=== PATIENT | female | born 1945 | race Caucasian/White ===

== ENCOUNTER 2025-05-20 14:12 | Inpatient (IN) | payer MEDICARE ==
[~2025-05-20] VITALS: Ht 170.2 cm; Wt 59.9 kg
[2025-05-20 15:59] LABS: PLATELET COUNT (AUTO) 221 K/uL (150-450); RED BLOOD CELL COUNT(AUTO) 5.27 MIL/uL (4.0-5.2); WHITE BLOOD COUNT (AUTO) 10.2 K/uL (4.3-11.0)
[2025-05-20 16:02] LABS: CALCIUM, SERUM 10.3 mg/dL (8.5-10.1); CREATININE 0.9 mg/dL (0.6-1.3); SODIUM SERUM 135 mmol/L (136-145); UREA NITROGEN, BLOOD 18 mg/dL (7-18)
[2025-05-20 16:08] LABS: ASPARTATE AMINOTRANSFERASE 24 U/L (15-37); TOTAL PROTEIN, SERUM 9.2 g/dL (6.4-8.2)
[2025-05-20] MEDS ORDERED: MORPHINE SULFATE INJ 4 MG/ML DISP.SYRIN ONE (16:10)
[2025-05-20] MEDS ORDERED: PANTOPRAZOLE 40 MG VIAL ONE (16:10)
[2025-05-20] MEDS ORDERED: ONDANSETRON HCL/PF 4 MG/2 ML VIAL ONE (16:10)
[2025-05-20] MEDS: ONDANSETRON HCL/PF 4 MG/2 ML VIAL IVP ONE (16:19)
[2025-05-20] MEDS: MORPHINE SULFATE INJ 2 MG/ML DISP.SYRIN IV ONE (16:19)
[2025-05-20] MEDS: PANTOPRAZOLE 40 MG VIAL IV ONE (16:20)
[2025-05-20] MEDS: IV NS 0.9% 1,000 ML BAG IV ONE (16:20)
[2025-05-20] MEDS ORDERED: IOHEXOL-300 100 ML VIAL IV ONE (16:21)
[2025-05-20] MEDS ORDERED: IV NS 0.9% 250 ML IV ONE (16:22)
[2025-05-20] MEDS ORDERED: DIATR MEGLU/DIATRIZOATE SODIUM 30 ML BOTTLE (GASTROGRAPHIN) ONE (18:09)
[2025-05-20] MEDS ORDERED: INSU100I30 SQ (18:18)
[2025-05-20] MEDS ORDERED: GEMTESA PO (18:18)
[2025-05-20] MEDS ORDERED: EXEM25TA5 PO (18:18)
[2025-05-20] MEDS ORDERED: ATOR40TA PO (18:18)
[2025-05-20] MEDS ORDERED: LEQEMBI IV (18:18)
[2025-05-20] MEDS ORDERED: LINA145C PO (18:18)
[2025-05-20] MEDS ORDERED: LIPA1CAP15 PO (18:18)
[2025-05-20] MEDS ORDERED: PANT40TA49 PO (18:18)
[2025-05-20] MEDS ORDERED: SITA100T PO (18:18)
[2025-05-20] MEDS ORDERED: IRBE75TA11 PO (18:18)
[2025-05-20] MEDS ORDERED: MOBIC PO (18:18)
[2025-05-20] MEDS ORDERED: HYDROMORPHONE 1 MG/1 ML DISP.SYRIN ONE (18:30)
[2025-05-20] MEDS: HYDROMORPHONE INJ 2 MG/ML DISP.SYRIN IV ONE (18:32)
[2025-05-20] MEDS ORDERED: hydrALAZINE HCL IV 20 MG VIAL IV PRN (19:00)
[2025-05-20] MEDS ORDERED: ACETAMINOPHEN 325 MG TABLET PO PRN (19:00)
[2025-05-20] MEDS ORDERED: DEXTROSE 50%-WATER 50 ML DISP.SYRIN IV PRN (19:00)
[2025-05-20 20:00] VITALS: BP 124/68; TEMP 98.1; O2SAT 95
[2025-05-20] MEDS ORDERED: DIATR MEGLU/DIATRIZOATE SODIUM 120 ML BOTTLE (GASTROGRAPHIN) ONE (20:01)
[2025-05-20 20:10] VITALS: BP 124/68; TEMP 98.1; O2SAT 95
[2025-05-20] MEDS: HEPARIN SODIUM, PORCINE 5000 UNITS/1 ML VIAL SQ SCH (20:46)
[2025-05-20] MEDS: IV NS 0.9% 1,000 ML IV SCH (20:46)
[2025-05-20] MEDS: BLOOD SUGAR DIAGNOSTIC 1 EACH STRIP VI SCH (20:59)
[2025-05-20] MEDS: *INSULIN REGULAR(HUMULIN R)HUM 100 UNIT/ML VIAL SQ PRN (21:03)
[2025-05-20 21:30] VITALS: BP 149/82; TEMP 99.5; O2SAT 98
[2025-05-21] MEDS: MORPHINE SULFATE INJ 2 MG/ML DISP.SYRIN IV PRN (00:58)
[2025-05-21] MEDS: ONDANSETRON HCL/PF 4 MG/2 ML VIAL IVP PRN (03:39)
[2025-05-21] MEDS: INSULIN REGULAR, HUMAN 100 UNIT/ML 3 ML VIAL SQ PRN (06:40)
[2025-05-21 06:59] LABS: PLATELET COUNT (AUTO) 210 K/uL (150-450); RED BLOOD CELL COUNT(AUTO) 4.86 MIL/uL (4.0-5.2); RED CELL DISTRIBUTION WIDTH 13.0 % (11.5-15.0); WHITE BLOOD COUNT (AUTO) 10.3 K/uL (4.3-11.0)
[2025-05-21 07:00] VITALS: BP 165/80; TEMP 98.2; O2SAT 95
[2025-05-21 07:36] LABS: ASPARTATE AMINOTRANSFERASE 26.0 U/L (15-37); CALCIUM, SERUM 9.2 mg/dL (8.5-10.1); CREATININE 1.0 mg/dL (0.6-1.3); PHOSPHORUS 5.9 mg/dL (2.5-4.9); SODIUM SERUM 140.0 mmol/L (136-145); TOTAL PROTEIN, SERUM 8.1 g/dL (6.4-8.2); UREA NITROGEN, BLOOD 27.0 mg/dL (7-18)
[2025-05-21] MEDS: HYDROMORPHONE 1 MG/1 ML DISP.SYRIN IV PRN (11:09)
[2025-05-21 20:00] VITALS: BP 103/70; TEMP 97.4; O2SAT 93
[2025-05-21 23:19] VITALS: BP 103/70; TEMP 97.7; O2SAT 93
[2025-05-22 07:30] VITALS: BP 150/64; TEMP 98.1; O2SAT 94
[2025-05-22] MEDS ORDERED: LIDOCAINE 0.5%-EPI 1:200,000 50 ML VIAL ONE (14:06)
[2025-05-22] MEDS ORDERED: LIDOCAINE 1%-EPI 1:100,000 20 ML VIAL ONE (14:06)
[2025-05-22] MEDS ORDERED: BUPIVACAINE 0.5 % PF 150 MG/30 ML VIAL ONE (14:06)
[2025-05-22] MEDS ORDERED: ANESTHESIA TRAY IN PYXIS 1 EA TRAY MC ONE (14:06)
[2025-05-22] MEDS ORDERED: FENTANYL PF 250MCG/5ML AMPUL ONE (15:11)
[2025-05-22] MEDS ORDERED: ROCURONIUM BROMIDE 50 MG/5 ML ONE (15:11)
[2025-05-22] MEDS ORDERED: METRONIDAZOLE 500MG/ NS 100ML 100 ML IV ONE (15:54)
[2025-05-22 16:04] LABS: INR 1.02 (0.91-1.10)
[2025-05-22] MEDS ORDERED: LABETALOL 20 MG/4 ML VIAL ONE (16:11)
[2025-05-22] MEDS ORDERED: ONDANSETRON HCL/PF 4 MG/2 ML VIAL ONE (17:17)
[2025-05-22 20:00] VITALS: BP 133/57; TEMP 97.9; O2SAT 93
[2025-05-23 08:00] VITALS: BP 144/68; TEMP 98; O2SAT 96
[2025-05-23 09:57] LABS: PLATELET COUNT (AUTO) 161 K/uL (150-450); RED BLOOD CELL COUNT(AUTO) 4.01 MIL/uL (4.0-5.2); RED CELL DISTRIBUTION WIDTH 13.2 % (11.5-15.0); WHITE BLOOD COUNT (AUTO) 6.2 K/uL (4.3-11.0)
[2025-05-23 10:11] LABS: CALCIUM, SERUM 8.5 mg/dL (8.5-10.1); CREATININE 0.7 mg/dL (0.6-1.3); PHOSPHORUS 2.3 mg/dL (2.5-4.9); SODIUM SERUM 146.0 mmol/L (136-145); UREA NITROGEN, BLOOD 22.0 mg/dL (7-18)
[2025-05-23 16:00] VITALS: BP 150/64; TEMP 99.1; O2SAT 96
[2025-05-23] MEDS: Sodium Phosphate 15 MMOL in IV NS 0.9% 245 ML IV SCH (16:53)
[2025-05-23 20:00] VITALS: BP 147/72; TEMP 98.2; O2SAT 96
[2025-05-24 07:43] LABS: CALCIUM, SERUM 8.3 mg/dL (8.5-10.1); CREATININE 0.5 mg/dL (0.6-1.3); PHOSPHORUS 2.0 mg/dL (2.5-4.9); SODIUM SERUM 146.0 mmol/L (136-145); UREA NITROGEN, BLOOD 16.0 mg/dL (7-18)
[2025-05-24 08:00] VITALS: BP 146/67; TEMP 98; TEMP 98.3; O2SAT 95
[2025-05-24] MEDS: IV NS 0.9% 1,000 ML IV PRN (10:29)
[2025-05-24] MEDS: POLYVINYL ALCOHOL 15 ML BOTTLE EACHEYE PRN (12:29)
[2025-05-24 16:00] VITALS: BP 137/62; TEMP 98.1; O2SAT 99
[2025-05-24] MEDS: Sodium Phosphate 15 MMOL in IV NS 0.9% 245 ML IV SCH (16:02)
[2025-05-24] MEDS: IV D5/ 0.9% NACL 1,000 ML IV SCH (16:02)
[2025-05-24 20:00] VITALS: BP 127/70; TEMP 98.1; O2SAT 97
[2025-05-24] MEDS: GUAIFENESIN 300 MG/15 ML UDC PO PRN (22:25)
[2025-05-25 07:54] LABS: CALCIUM, SERUM 8.4 mg/dL (8.5-10.1); CREATININE 0.6 mg/dL (0.6-1.3); SODIUM SERUM 145.0 mmol/L (136-145); UREA NITROGEN, BLOOD 13.0 mg/dL (7-18)
[2025-05-25 08:00] VITALS: BP 122/60; TEMP 98.4; O2SAT 98
[2025-05-25 08:15] VITALS: BP 122/60; TEMP 98.4; O2SAT 98
[2025-05-25] MEDS ORDERED: POTASSIUM CHLORIDE 20 MEQ POWDER PACKET PO SCH (09:30)
[2025-05-25] MEDS ORDERED: POTASSIUM CL. PREMIX PERIPHER. 50 ML IV SCH (09:30)
[2025-05-25] MEDS: POTASSIUM CHLORIDE 20 MEQ POWDER PACKET PO SCH (10:09)
[2025-05-25] MEDS: IV D5/ 0.9% NACL 1,000 ML IV PRN (11:08)
[2025-05-25 16:00] VITALS: BP 151/77; TEMP 98.2; O2SAT 100
[2025-05-25 16:41] VITALS: BP 151/77; TEMP 98.2; O2SAT 100
[2025-05-25 20:00] VITALS: BP 150/61; TEMP 97.3; O2SAT 99
[2025-05-25 21:13] VITALS: BP 150/61; TEMP 97.3; O2SAT 99
[2025-05-26 06:51] LABS: CALCIUM, SERUM 7.9 mg/dL (8.5-10.1); CREATININE 0.4 mg/dL (0.6-1.3); PHOSPHORUS 2.6 mg/dL (2.5-4.9); SODIUM SERUM 140.0 mmol/L (136-145); UREA NITROGEN, BLOOD 7.0 mg/dL (7-18)
[2025-05-26 06:59] LABS: PLATELET COUNT (AUTO) 156 K/uL (150-450); RED BLOOD CELL COUNT(AUTO) 3.80 MIL/uL (4.0-5.2); RED CELL DISTRIBUTION WIDTH 12.5 % (11.5-15.0); WHITE BLOOD COUNT (AUTO) 4.7 K/uL (4.3-11.0)
[2025-05-26 08:00] VITALS: BP 152/63; TEMP 97.9; O2SAT 97
[2025-05-26] MEDS: MAGNESIUM OXIDE 400 MG TABLET PO ONE (09:01)
[2025-05-26] MEDS: POTASSIUM CL. PREMIX PERIPHER. 50 ML IV SCH (09:42)
== END 2025-05-26 11:00 | disposition home health service (06) | DRG 337 ==
LOC: ER 14:16 → TELE 19:28 → MED 20:17
PROVIDERS: ADMIT Internal Medicine
PROC: 0DNN4ZZ Release Sigmoid Colon, Percutaneous Endoscopic Approach (ICD-10-PCS; 2025-05-22)
PROC: 0DNU4ZZ Release Omentum, Percutaneous Endoscopic Approach (ICD-10-PCS; 2025-05-22)
PROC: 0DNK4ZZ Release Ascending Colon, Percutaneous Endoscopic Approach (ICD-10-PCS; 2025-05-22)
PROC: 0DNB4ZZ Release Ileum, Percutaneous Endoscopic Approach (ICD-10-PCS; principal; 2025-05-22 15:00)
DX: K56.52 Intestinal adhesions [bands] with complete obstruction (principal); K56.2 Volvulus; D75.1 Secondary polycythemia; E86.0 Dehydration; K59.00 Constipation, unspecified; Z85.3 Personal history of malignant neoplasm of breast; E11.9 Type 2 diabetes mellitus without complications; I10 Essential (primary) hypertension; N28.1 Cyst of kidney, acquired; Z90.49 Acquired absence of other specified parts of digestive tract; Z90.710 Acquired absence of both cervix and uterus; K63.89 Other specified diseases of intestine
CPT/HCPCS: 36415; 71045-TC; 74018; 74250-TC; 80048-TC; 80053-TC; 80076-TC; 82962-TC; 83690-TC; 83735-TC; 84100-TC; 85025-TC; 85610-TC; 85730-TC; 86850-TC; 93307-TC; A4223; A9563; G0378; J0461; J0690; J1171; J1644; J1815; J2270; J2405; J2470; J2704; J3010; J3480; J3490; J7030; J7042; J7050; Q9963; Q9967